=== PATIENT | male | born 1960 | race Caucasian/White ===

== ENCOUNTER 2022-07-25 08:40 | Emergency (ER) | payer OTHER, SELFPAY ==
[2022-07-25 08:51] VITALS: BP 150/100; PULSE 81; RESP 20; TEMP 36.6; O2SAT 100
--- NOTE | 2022-07-25 09:34 | ED.DENTAL ---
HPI - Dental/Oral General Chief complaint: Dental/Oral Stated complaint: swollen jaw Time Seen by Provider: 07/25/22 09:34 Source: patient Mode of arrival: ambulatory History of Present Illness HPI Narrative: 62-year-old male presented for complaint of right lower jaw/dental pain and swelling worsening over the past week. He states he woke this morning with severe swelling to the lower jaw. He has been taking ibuprofen. He is scheduled with his dentist tomorrow. states symptoms started with sensitivity to heat cold. Currently rates pain 10/08. Denies drainage from site,nausea, vomiting, difficulty swallowing, fevers or chills. MD Complaint: tooth pain Related Data Allergies Allergy/AdvReac Type Severity Reaction Status Date / Time No Known Allergies Allergy Unverified 10/17/14 19:49 Review of Systems Review of Systems: CONSTITUTIONAL: Denies body aches, fever, chills ENT: Denies rhinorrhea, congestion, sore throat, or otalgia. Reports dental pain CARDIOVASCULAR: Denies chest pain, palpitations RESPIRATORY: Denies cough or dyspnea. SKIN: Denies rash, itching, or wounds. MUSCULOSKELETAL: Denies myalgia. NEUROLOGIC: Denies headache, numbness, tingling, or weakness. [facility] Past Medical History Medical History (Updated 07/25/22 @ 09:48 by Chana Naidu, RANGEL) No pertinent past medical history Comments At time of signature, I have reviewed and agree with nursing past medical, surgical, social and family history unless otherwise noted. Please see nursing chart for further information. There is no relevant family history pertinent to the presenting complaint Exam Narrative: GENERAL: Appears in pain; no acute distress. HEAD: Normocephalic, atraumatic. EYES: EOMI. No redness or drainage. Conjunctivae normal. ENT: Dental pain location of #30, multiple broken teeth and caries. Severe swelling to right lower jaw and cheek. Mucous membranes pink and moist. TMs normal bilaterally. Throat normal. Uvula midline. Maintaining secretions. NECK: Normal AROM. No lymphadenopathy. No swelling or induration below mandible. CHEST: No respiratory distress. Clear to auscultation. Speaks full sentences. HEART: Regular rate and rhythm. No murmur appreciated. SKIN: Warm, dry, no rash. Normal skin turgor. NEURO: No focal deficits. Alert and oriented x3. Gait steady. Course Course Emergency Course: Patient is aware of diagnosis, understands and agrees to treatment plan. Anticipatory guidance given. Patient agrees to follow-up as directed and is aware of reasons to seek care at the emergency department. Portions of this record may have been created with voice recognition software Level of Care: Express Care Visit Vital Signs Vital signs: Vital Signs Temperature 97.9 F 07/25/22 08:51 Pulse Rate 81 07/25/22 08:51 Respiratory Rate 20 07/25/22 08:51 Blood Pressure 150/100 H 07/25/22 08:51 Pulse Oximetry 100 07/25/22 08:51 Oxygen Delivery Room Air 07/25/22 08:51 Temperature 97.9 F 07/25/22 08:51 Pulse Rate 81 07/25/22 08:51 Respiratory Rate 20 07/25/22 08:51 Blood Pressure 150/100 H 07/25/22 08:51 Pulse Oximetry 100 07/25/22 08:51 Oxygen Delivery Room Air 07/25/22 08:51 MDM - Dental/Oral MDM Narrative Medical decision making narrative: Patients pain and complaint coupled with physical findings are consistent with dental abscess. There are no focal signs of space occupying lesions that are compromising to the airway; no dysphagia, odynophagia, dysphonia, or dyspnea. No uvular deviation or soft palate edema. Patient is non-toxic appearing. The floor of the mouth is soft with no signs of Dhaval's Angina; no induration below mandible, no neck pain. Patient is without trismus or drooling and able to swallow secretions. Patient is felt appropriate for discharge home with dental follow up tomorrow. Rx abx, ibuprofen, and small number of norco for pain. Differential Diagnos
== END 2022-07-25 09:48 | disposition home or self-care (01) ==
PROVIDERS: Emergency Provider Nurse Practitioner Family; PCP Internal Medicine
DX: K04.7 Periapical abscess without sinus (principal)
CPT/HCPCS: 99203; G0463